=== PATIENT | female | born 1945 | race Hispanic/Latino ===

== ENCOUNTER → 2016-04-09 | Outpatient (CLI) | payer MEDICARE | LOC: GMAM 17:51 | PROVIDERS: ATTEND Family Medicine | DX: R31.29 Other microscopic hematuria (principal) ==

== ENCOUNTER → 2016-04-18 | Outpatient (CLI) | payer MEDICARE | END | disposition home or self-care (01) | LOC: GMAM 17:36 | PROVIDERS: ATTEND Family Medicine | DX: A59.9 Trichomoniasis, unspecified (principal); R31.29 Other microscopic hematuria ==

== ENCOUNTER → 2016-05-28 | Outpatient (CLI) | payer MEDICARE | END | disposition home or self-care (01) | LOC: GMAM 17:29 | PROVIDERS: ATTEND Family Medicine | DX: N39.41 Urge incontinence (principal) ==

== ENCOUNTER → 2016-05-31 | Outpatient (CLI) | payer MEDICARE ==
--- NOTE | 2016-05-31 10:21 | CT ---
EXAM DESCRIPTION: Abdomen/Pelvis w/wo Contrast CLINICAL HISTORY: URINARY INCONTINENCE N39.41 COMPARISON: July 04, 2010 TECHNIQUE: Pre and post contrast transaxial CT images of the abdomen and pelvis are obtained. CT scan done according to ALARA (As Low As Reasonably Achievable). FINDINGS: Visualized lung bases show no acute findings. Given the limitations of a noncontrast exam the liver, spleen, pancreas, adrenal glands, and gallbladder are unremarkable. Mild atherosclerotic disease is seen. Kidneys show no abnormal calcifications. No ureteral calcification or obstruction is seen. There is a less than 10 mm hypodense cortical lesion in the upper pole of the right kidney likely representing cyst. Subtle hypodensity in the posterior mid pole left kidney measuring 13 mm is not well characterized. Urinary bladder is contracted and unremarkable. Bladder fills with contrast on delayed images. The uterus is atrophic. The ovaries are unremarkable. The appendix is not identified. No small bowel obstruction is seen. Colon is unremarkable. Occasional mild diverticuli of the descending and sigmoid colon are seen without associated inflammatory changes or fluid collections. No pathologic lymphadenopathy. There is a borderline left common iliac chain lymph node measuring 10 mm that is stable compared to previous exam. Osseous structures show no aggressive bony lesions. Remote anterior wedge compression deformity of T8 10 again seen. IMPRESSION: No acute findings on pre and postcontrast CT of the abdomen and pelvis. Probable subcentimeter cortical cyst of the upper pole right kidney. Ill-defined hypodensity in the posterior mid to lower pole left kidney. This could represent mild left of the kidney. Further evaluation with ultrasound imaging may be useful. This appears to be present on the previous noncontrast study. Urinary bladder is contracted and not well evaluated. Electronically signed by: Roderick Monahan MD 05/31/2016 10:20 AM CDT
== END | disposition home or self-care (01) ==
LOC: CT 07:34
PROVIDERS: ATTEND Family Medicine
DX: N39.41 Urge incontinence (principal)

== ENCOUNTER → 2016-06-18 | Outpatient (CLI) | payer MEDICARE | END | disposition home or self-care (01) | LOC: GMAM 16:50 | PROVIDERS: ATTEND Family Medicine | DX: N30.00 Acute cystitis without hematuria (principal) ==

== ENCOUNTER → 2016-06-21 | Outpatient (CLI) | payer MEDICARE ==
--- NOTE | 2016-06-24 05:38 | US ---
Procedure: US RETROPERITONEUM Exam Date: 06/21/2016 12:00 AM CDT Ordering Provider: CARMELO SPRINGER Clinical Indication: HEMATURIA Comparison: None Technique: Real-time ultrasonography was obtained over the kidneys and urinary bladder and national account representative images were recorded. Findings: The right kidney is normal in size and contour. Normal renal cortical thickness and echogenicity. 4 x 5 mm calculus within the superior pole of the right kidney. There are no masses or hydronephrosis. The left kidney is normal in size and contour. Normal renal cortical thickness and echogenicity. There are no masses, calculi, or hydronephrosis. Bladder is not well seen. Impression: 1. Nonobstructing right upper pole calculus. Otherwise, unremarkable renal ultrasound. Electronically signed by: Darrell Martinez MD 06/24/2016 5:38 AM CDT
== END | disposition home or self-care (01) ==
LOC: US 14:41
PROVIDERS: ATTEND Family Medicine
DX: R31.29 Other microscopic hematuria (principal)

== ENCOUNTER → 2016-12-30 | Outpatient (CLI) | payer MEDICARE | END | disposition home or self-care (01) | LOC: GMAM 17:47 | PROVIDERS: ATTEND Family Medicine | DX: E55.9 Vitamin D deficiency, unspecified (principal); R53.83 Other fatigue; M85.89 Other specified disorders of bone density and structure, multiple sites; R31.29 Other microscopic hematuria ==

== ENCOUNTER 2017-01-23 15:04 | Emergency (ER) | payer MEDICARE ==
[2017-01-23 15:25] VITALS: TEMP 96.9
--- NOTE | 2017-01-23 15:36 | ED.PDOC ---
History of Present Illness - General Chief Complaint: Eye Problems Stated Complaint: eye twitching Time Seen by Provider: 01/23/17 15:13 Source: patient Exam Limitations: no limitations - History of Present Illness Initial Comments: Rashida Mattson 71 y/o female stated that her eyes had been shutting on and off since yesterday.Denies blurry vision ,recent eye trauma,or head injury.No weakness,no slurred speech. Timing/Duration: yesterday EENT Location: eye (L) Prearrival Treatment: other - otc-eye drops Improving Factors: nothing Worsening Factors: nothing Associated Symptoms: denies symptoms Allergies/Adverse Reactions: Allergies Iodine Allergy (Verified 09/23/13 00:48) Levocetirizine [From Xyzal] Allergy (Verified 01/23/17 15:25) Naproxen [From Aleve] Adverse Reaction (Verified 06/16/15 08:49) red pills Allergy (Uncoded 07/19/12 12:29) Home Medications: Ambulatory Orders Dnheuhg-Chvmsnolvjsca-Uuvgluza [Excedrin Extra Strength] 1 tab PO PRN 06/16/15 Atorvastatin Calcium [Lipitor] 10 mg PO BEDTIME 06/16/15 Lisinopril 10 mg PO BEDTIME 06/16/15 Metformin HCl 500 mg PO BEDTIME 06/16/15 Sertraline HCl [Zoloft] 100 mg PO BEDTIME 06/16/15 Review of Systems - Review of Systems Constitutional: States: no symptoms reported EENTM: States: see HPI Respiratory: States: no symptoms reported Cardiology: States: no symptoms reported Gastrointestinal/Abdominal: States: no symptoms reported Genitourinary: States: no symptoms reported Musculoskeletal: States: no symptoms reported Skin: States: no symptoms reported Neurological: States: no symptoms reported Past Medical History (General) - Patient Medical History Hx Congestive Heart Failure: No Hx Hypertension: Yes Hx Diabetes: Yes Hx Gastroesophageal Reflux: Yes Surgical History: appendectomy, other - both knees - Vaccination History Hx Tetanus, Diphtheria Vaccination: No Hx Influenza Vaccination: No Hx Pneumococcal Vaccination: No - Social History Hx Tobacco Use: Yes Hx Alcohol Use: No - Activities of Daily Living Grooming Ability: Independent Eating (Feeding) Ability: Independent Toileting Ability: Independent - Female History Patient : No Family Medical History - Family History Mother Family History: No Known Living Status: Hx Family Asthma: No Hx Family Diabetes: Yes - brother Hx Family;Other: LUPUS Physical Exam - Physical Exam General Appearance: Alert, Anxious, Comfortable, No apparent distress Eye Exam: bilateral normal Ear Exam: bilateral ear: auricle normal, canal normal, TM normal Nasal Exam: normal inspection Throat Exam: normal mouth inspection, pharynx normal Neck: non-tender, supple, normal inspection, trachea midline Cardiovascular/Respiratory: regular rate, rhythm, normal peripheral pulses, normal breath sounds Abdominal Exam: non-tender, no organomegaly Neurologic: no motor/sensory deficits, alert, oriented x 3 Skin Exam: normal color, warm/dry Progress - Progress Progress: 01/23/17 15:43 Last Vital Signs Temp 96.9 F L 01/23/17 15:21 Pulse 59 L 01/23/17 15:21 Resp 20 01/23/17 15:21 BP 143/68 01/23/17 15:21 Pulse Ox 98 01/23/17 15:21 - Results/Orders Results/Orders: Laboratory Tests 01/23/17 01/23/17 15:39 16:01 WBC 6.9 RBC 4.34 Hgb 12.6 Hct 37.8 MCV 87.1 MCH 29.0 MCHC 33.3 RDW 13.5 Plt Count 177 MPV 10.2 Absolute Neuts (auto) 4.23 Absolute Lymphs (auto) 2.19 Absolute Monos (auto) 0.41 Absolute Eos (auto) 0.05 Absolute Basos (auto) 0.02 Neutrophils % 61.4 Lymphocytes % 31.7 Monocytes % 5.9 Eosinophils % 0.7 L Basophils % 0.3 Sodium 139 Potassium 3.1 L Chloride 102 Carbon Dioxide 31 Anion Gap 9.1 L BUN 13 Creatinine 0.59 L BUN/Creatinine Ratio 22.0 H Random Glucose 116 H Serum Osmolality 278.6 Calcium 9.3 - EKG/XRAY/CT CT Ordered: Yes - head-no acute abnormalities Departure - Departure Clinical Impression: Blepharospasm, Hypokalemia Time of Disposition: 17:26 Disposition: Discharge to Home or Self Care Condition: Fair Departure Forms: ED Discharge - Pt. Copy, Patient Portal Self Enrollment Referrals: Davonte Angela MD [Primary Care Provider] - 1-2 Weeks Home Medications: Ambulatory Orders Fjmudac-Xmtmricuwarwj-Igczough [Excedrin Extra Strength] 1 tab PO PRN 06/16/15 Atorvastatin Calcium [Lipitor] 10 mg PO BEDTIME 06/16/15 Lisinopril 10 mg PO BEDTIME 06/16/15 Metformin HCl 500 mg PO BEDTIME 06/16/15 Sertraline HCl [Zoloft] 100 mg PO BEDTIME 06/16/15 Additional Instructions: May take over the counter Potassium tablet -one tablet daily for one week only; Follow up with primary md if symptoms of eye twitching persist after one week for referral to student records specialist
--- NOTE | 2017-01-23 16:38 | CT ---
EXAM DESCRIPTION: Head CLINICAL HISTORY: apraxia of left eyelid COMPARISON: CT scan of the head 01/23/2017. TECHNIQUE: Non-helical axial scans through the skull and brain, at 2.5 mm intervals, non-contrast. Coronal and sagittal 2.0 mm reconstructions. Total Exam DLP: 677.23 mGy-cm. This exam was performed according to our departmental dose-optimization program which includes automated exposure control, adjustment of the mA and/or kV according to patient size and/or use of iterative reconstruction technique; to reduce radiation dose to as low as reasonably achievable (ALARA). FINDINGS: No hemorrhage, no mass-effect, and no midline shift. Bilateral scattered regions of low-density in the subcortical white matter and hightower-white matter junctions. No abnormal radiodense material in the brain parenchyma. Vascular calcifications not present; physiologic calcifications in the pineal gland and choroid plexus. No effacement or displacement of the ventricles, CSF spaces, or subdural spaces. Bilateral cortical sulci mildly prominent. No extra axial fluid collection or hemorrhage. No gross abnormalities of the bony calvarium. Paranasal sinuses show mucoperiosteal thickening. IMPRESSION: 1. No hemorrhage, no mass effect, no midline shift. Bilateral low-density in the white matter is symmetric and most likely related to cerebral microvascular disease. Has slightly progressed since March 2011 CT scan of the head. 2. CT scans are insensitive for detecting small CVAs in the first 24 hours after onset. Evaluation of the brain stem is also limited. If symptoms persist, consider MRI scan of the brain with diffusion imaging. 3. Chronic paranasal sinusitis. Electronically signed by: Hayden Krause MD 01/23/2017 4:37 PM [facility]
[2017-01-23 17:42] VITALS: BP 136/78; O2SAT 97
== END 2017-01-23 17:42 | disposition home or self-care (01) ==
LOC: ER 15:04
DX: G24.5 Blepharospasm (principal); E87.6 Hypokalemia; I10 Essential (primary) hypertension; E11.9 Type 2 diabetes mellitus without complications; K21.9 Gastro-esophageal reflux disease without esophagitis; Z87.891 Personal history of nicotine dependence; Z88.8 Allergy status to other drugs, medicaments and biological substances; Z79.82 Long term (current) use of aspirin

== ENCOUNTER → 2017-02-11 | Outpatient (CLI) | payer MEDICARE | END | disposition home or self-care (01) | LOC: GMAM 16:29 | PROVIDERS: ATTEND Family Medicine | DX: N39.41 Urge incontinence (principal) ==

== ENCOUNTER → 2017-04-28 | Outpatient (CLI) | payer MEDICARE ==
--- NOTE | 2017-04-29 08:31 | US ---
EXAM DESCRIPTION: Renal CLINICAL HISTORY: 71 years Female, RENAL CYST COMPARISON: Previous study June 21, 2016, CT abdomen and pelvis without and with contrast November 23 May 31, 2016 TECHNIQUE: Retroperitoneal sonogram was performed to evaluate the kidneys and bladder. FINDINGS: Right kidney Right renal length is 10.4 cm. Renal cortical thickness and echogenicity are normal. Small echogenic focus 7 mm in the upper pole cortex of the right kidney may be small angiomyolipoma. This appears benign. This was seen on the previous study in June 2016 and at that time measured 6 mm. Lucency in the upper pole the right kidney could be a small cyst 7 mm in size or sonolucent pyramid. Otherwise no right renal mass, cyst or shadowing stone. Left kidney Left renal length is 10.4 cm. Renal cortical thickness and echogenicity are normal. No left renal mass, cyst or shadowing stone. Urinary bladder is not visualized. Inferior vena cava and aorta are unremarkable for age. No aortic aneurysm. 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 This is considered an incidental finding. Otherwise normal sonographic examination of the kidneys. Electronically signed by: Dominik Stoddard MD 04/29/2017 8:30 AM [facility]
== END ==
LOC: US 14:28
PROVIDERS: ATTEND Urology
DX: N20.0 Calculus of kidney (principal); N28.1 Cyst of kidney, acquired

== ENCOUNTER → 2017-07-15 | Outpatient (CLI) | payer MEDICARE | LOC: GMAM 10:58 | PROVIDERS: ATTEND Family Medicine | DX: E55.9 Vitamin D deficiency, unspecified (principal) ==

== ENCOUNTER → 2018-01-09 | Outpatient (CLI) | payer MEDICARE | LOC: GMAM 13:01 | PROVIDERS: ATTEND Family Medicine | DX: E55.9 Vitamin D deficiency, unspecified (principal) ==

== ENCOUNTER → 2018-03-12 | Outpatient (CLI) | payer MEDICARE | LOC: GMAM 16:38 | PROVIDERS: ATTEND Family Medicine | DX: R10.13 Epigastric pain (principal) ==

== ENCOUNTER 2018-03-13 09:02 | Emergency (ER) | payer MEDICARE ==
[2018-03-13 09:21] VITALS: TEMP 97.7
[2018-03-13] MEDS ORDERED: SODIUM CHLORIDE 0.9% (FLUSH) 10 ML SYG IV PRN (09:43)
--- NOTE | 2018-03-13 10:02 | ED.PDOC ---
History of Present Illness - General Chief Complaint: GI Problem Stated Complaint: epigastric pain Time Seen by Provider: 03/13/18 09:29 Information Source: patient Exam Limitations: no limitations - History of Present Illness Initial Comments: PT PRESENTS WITH COMPLAINT OF EPIGASTRIC ABDOMINAL PAIN WITH RADIATION TO THE CHEST AND THROAT THAT AWOKE HER FROM SLEEP YESTERDAY MORNING. PT DESCRIBES THE PAIN A PULLING SENSATION IN THE EPIGASTRIC REGION AND STATES THAT SHE HAD A BURNING SENSATION IN HER THROAT. PT WAS SEEN BY HER PCP YESTERDAY HAD LAB WORK DONE. PCP CALLED HER THIS AM AND RECOMMENDED COMING TO THE ED IF SYMPTOMS REMAINED. PT REPORTS THAT PAIN HAS IMPROVED SINCE YESTERDAY AFTER BEING STARTED ON PPI AND MILK OF MAGNESIA BY PCP. ONLY RATING IT AT 3/10 CURRENTLY. PT REPORTS EATING CROWLEY PIE FOR BREAKFAST PRIOR TO ARRIVAL. DENIES, NAUSEA, VOMITING, FEVER, SOB, OR CHEST PAIN. Abdominal Pain Onset Location: epigastric Pain Radiation: chest Quality: moderate, aching, burning Improving Factors: medication Worsening Factors: nothing Associated Symptoms: heartburn Review of Systems - Review of Systems Constitutional: Denies: chills, fever EENTM: Denies: nose congestion, throat pain Respiratory: Denies: cough, short of breath Cardiology: Denies: chest pain Gastrointestinal/Abdominal: States: abdominal pain. Denies: nausea, vomiting Genitourinary: Denies: dysuria, hematuria Musculoskeletal: Denies: joint pain, joint swelling Skin: Denies: dryness, lesions Neurological: Denies: headache, numbness Past Medical History (General) - Patient Medical History Hx Congestive Heart Failure: No Hx Hypertension: Yes Hx Diabetes: Yes Hx Gastroesophageal Reflux: Yes - Vaccination History Hx Tetanus, Diphtheria Vaccination: No Hx Influenza Vaccination: No Hx Pneumococcal Vaccination: No - Social History Hx Tobacco Use: Yes Hx Alcohol Use: No - Female History Patient : No Family Medical History - Family History Mother Family History: No Known Living Status: Hx Family Asthma: No Hx Family Diabetes: Yes - brother Hx Family;Other: LUPUS Physical Exam - Physical Exam General Appearance: Alert, Comfortable, No apparent distress, Obese, Well Groomed Eyes, Ears, Nose, Throat Exam: normal ENT inspection Neck: non-tender, full range of motion Respiratory: lungs clear, normal breath sounds, no respiratory distress Cardiovascular/Chest: regular rate, rhythm, no murmur Gastrointestinal/Abdominal: non tender, soft Back Exam: normal inspection Extremity: non-tender, normal inspection Neurologic: alert, normal mood/affect, oriented x 3 Skin Exam: normal color, warm/dry Progress - Progress Progress: 03/13/18 11:33 Laboratory Tests 03/13/18 03/13/18 03/13/18 09:55 09:55 09:55 WBC 6.1 RBC 4.41 Hgb 12.8 Hct 38.6 MCV 87.7 MCH 29.0 MCHC 33.1 RDW 13.9 Plt Count 177 MPV 9.1 Absolute Neuts (auto) 4.00 Absolute Lymphs (auto) 1.60 Absolute Monos (auto) 0.40 Absolute Eos (auto) 0.00 Absolute Basos (auto) 0.00 Neutrophils % 66.5 Lymphocytes % 25.7 Monocytes % 7.2 Eosinophils % 0.1 L Basophils % 0.5 Sodium 140 Potassium 3.6 Chloride 103 Carbon Dioxide 30 Anion Gap 10.6 L BUN 16 Creatinine 0.63 BUN/Creatinine Ratio 25.4 H Random Glucose 127 H Serum Osmolality 282.2 Calcium 9.1 Total Bilirubin 0.5 Direct Bilirubin < 0.1 Indirect Bilirubin 0.4 AST 22 ALT 19 Alkaline Phosphatase 66 Troponin I < 0.02 Serum Total Protein 7.4 Albumin 4.3 Lipase 22 Urine Color Urine Appearance Urine pH Ur Specific Dexter Urine Protein Urine Glucose (UA) Urine Ketones Urine Blood Urine Nitrite Urine Bilirubin Urine Urobilinogen Ur Leukocyte Esterase Urine RBC Urine WBC Ur Epithelial Cells Urine Bacteria 03/13/18 10:25 WBC RBC Hgb Hct MCV MCH MCHC RDW Plt Count MPV Absolute Neuts (auto) Absolute Lymphs (auto) Absolute Monos (auto) Absolute Eos (auto) Absolute Basos (auto) Neutrophils % Lymphocytes % Monocytes % Eosinophils % Basophils % Sodium Potassium Chloride Carbon Dioxide Anion Gap BUN Creatinine BUN/Creatinine Ratio Random Glucose Serum Osmolality Calcium Total Bilirubin Direct Bilirubin Indirect Bilirubin AST ALT Alkaline Phosphatase Troponin I Serum Total Protein Albumin Lipase Urine Color Yellow Urine Appearance Clear Urine pH 7.5 Ur Specific Dexter 1.020 Urine Protein Trace Urine Glucose (UA) Negative Urine Ketones Trace Urine Blood Negative Urine Nitrite Negative Urine Bilirubin Negative Urine Urobilinogen 0.2 Ur Leukocyte Esterase Negative Urine RBC 1-3 Urine WBC 3-5 H Ur Epithelial Cells 5-10 Urine Bacteria Rare PT REPORTS IMPROVED SYMPTOMS AFTER GI SLIDER AND IV FLUIDS. LABS AND DIAGNOSTICS DISCUSSED. RECOMMEND OUTPATIENT U/S IF SYMPTOMS PERSIST AND FOLLOW UP WITH PCP. 03/13/18 11:35 - EKG/XRAY/CT EKG: Sinus - @77BPM, NL INTERVALS, NL AXIS, no ST T wave changes, Unchanged from - 07/19/12 XRAY: chest - NO ACTIVE DISEASE AD PER RAD Departure - Departure Clinical Impression: Epigastric abdominal pain, UTI (urinary tract infection), Dehydration Time of Disposition: 11:39 Disposition: Discharge to Home or Self Care Condition: Good Departure Forms: ED Discharge - Pt. Copy, Patient Portal Self Enrollment Instructions: DI for Gastroesophageal Reflux Disease (GERD), DI for Abdominal Pain-Adult, Urinary Tract Infection, Adult (DC) Diet: bland diet Referrals: Davonte Angela MD [Primary Care Provider] - 1-5 Days Prescriptions: Cefuroxime Axetil [Ceftin] 500 mg PO Q12H #6 tablet Home Medications: Ambulatory Orders Omgmkmc-Iztcuoafmdexj-Xatueslc [Excedrin Extra Strength] 1 tab PO PRN 06/16/15 Atorvastatin Calcium [Lipitor] 10 mg PO BEDTIME 06/16/15 Metformin HCl 500 mg PO BEDTIME 06/16/15 Sertraline HCl [Zoloft] 100 mg PO BEDTIME 06/16/15 Cefuroxime Axetil [Ceftin] 500 mg PO Q12H #6 tablet 03/13/18 Pantoprazole Sodium 40 mg PO DAILY 03/13/18 amLODIPine BESYLATE [Norvasc] 5 mg PO DAILY 03/13/18
--- NOTE | 2018-03-13 10:04 | RAD ---
EXAM DESCRIPTION: Chest,1 View CLINICAL HISTORY: 72 years Female, CHEST PAIN COMPARISON: Previous study July 19, 2012 TECHNIQUE: AP portable chest. FINDINGS: Heart size is prominent with normal pulmonary vascularity. The heart appeared larger on the previous exam. No consolidating infiltrate. No pulmonary mass or worrisome nodule. No pneumothorax or pleural effusion. Bones are unremarkable. IMPRESSION: No acute process is identified in the chest. Electronically signed by: Dominik Stoddard MD 03/13/2018 10:[address] [facility]
[2018-03-13] MEDS ORDERED: SODIUM CHLORIDE 0.9% 1000ML 1,000 ML IVS ONE (10:41)
[2018-03-13] MEDS ORDERED: ALUM & MAG HYDROX-SIMETHICONE 30 ML, LIDOCAINE VISCOUS 2% 15 ML PO ONE ×2 (10:41)
[2018-03-13] MEDS ORDERED: ALUM & MAG HYDROX-SIMETHICONE 30 ML UD ONE (11:38)
[2018-03-13] MEDS ORDERED: LIDOCAINE HCL 2% (MOUTH-THROAT) 15 ML UD ONE (11:38)
[2018-03-13 12:52] VITALS: BP 169/67; O2SAT 98
== END 2018-03-13 12:50 | disposition home or self-care (01) ==
LOC: ER 09:02
DX: N39.0 Urinary tract infection, site not specified (principal); E86.0 Dehydration; R10.13 Epigastric pain; I10 Essential (primary) hypertension; E11.9 Type 2 diabetes mellitus without complications; K21.9 Gastro-esophageal reflux disease without esophagitis; Z87.891 Personal history of nicotine dependence
CPT/HCPCS: 36415; 71045; 80048; 80076; 81001; 83690; 84484; 85025; 93005; J7030

== ENCOUNTER → 2019-10-01 | Outpatient (CLI) | payer MEDICARE ==
--- NOTE | 2019-10-04 09:29 | US ---
EXAM DESCRIPTION: Abdomen,Limited: ULTRASOUND. CLINICAL HISTORY: GEN ABD PN COMPARISON: None. TECHNIQUE: Transabdominal scanning: hightower-scale mode. Doppler mode. FINDINGS: Gallbladder: Moderate size and heterogeneous internal echoes with 2.6 cm echogenic stone with acoustic shadowing. Mobile with patient change in position. No fluid around the gallbladder. No wall thickening. 2.6 mm. Non-tender with transducer pressure. Common bile duct: caliber 4.3 mm within normal limits. Liver: Increased heterogeneous echogenicity; fatty sparing. Contour liver capsule smooth where seen. No fluid around the liver. Intrahepatic biliary ducts normal caliber. Doppler hepatopedal flow and normal caliber portal vein.. 9 mm at the ivy hepatis. Long axis right lobe 17.2 cm. Pancreas: normal size and echogenicity. Duct not seen. Proximal abdominal aorta: 1.8 cm normal.. IVC: visualized and normal caliber. Right kidney: long axis measures 10.1 cm., 105.9 mL volume. Normal cortical Echogenicity. Normal cortical thickness. No echogenic stones; no hydronephrosis. IMPRESSION: 1. Cholelithiasis of the gallbladder with debris but no wall thickening or abnormal fluid. Nontender with transducer pressure. Normal common bile duct caliber. 2. Fatty liver with mild enlargement. No ascites. Pancreas is negative. 3. Right kidney is unremarkable. Normal caliber of the proximal abdominal aorta and IVC. Electronically signed by: Hayden Krause MD 10/04/2019 9:27 AM CDT
== END ==
LOC: US 08:52
PROVIDERS: ATTEND Family Medicine
DX: K80.20 Calculus of gallbladder without cholecystitis without obstruction (principal); K76.0 Fatty (change of) liver, not elsewhere classified

== ENCOUNTER → 2019-10-05 | Outpatient (CLI) | payer MEDICARE | LOC: GMAM 11:54 | PROVIDERS: ATTEND Family Medicine | DX: R07.89 Other chest pain (principal); R73.9 Hyperglycemia, unspecified; R10.84 Generalized abdominal pain; I10 Essential (primary) hypertension ==

== ENCOUNTER 2019-10-15 05:36 | Day surgery (SDC) | payer MEDICARE ==
[2019-10-15] MEDS ORDERED: DEXAMETHASONE INJ 10 MG/ML VIAL IV ONE (05:37)
[2019-10-15] MEDS ORDERED: MAGNESIUM SULFATE INJ 1 GM/2 ML VIAL IVPB ONE (05:37)
[2019-10-15] MEDS ORDERED: PROPOFOL 200 MG/20 ML VIAL IV ONE (05:37)
[2019-10-15] MEDS ORDERED: LIDOCAINE 1% 10 ML VIAL INJ ONE (05:37)
[2019-10-15] MEDS ORDERED: ceFAZolin SODIUM 1 GM VIAL ONE (06:28)
[2019-10-15] MEDS ORDERED: SODIUM CHL 0.9% 100ML MINI-BAG 100 ML IVPB ONE (06:28)
[2019-10-15] MEDS ORDERED: LACTATED RINGERS 1,000 ML ONE (06:28)
[2019-10-15] MEDS ORDERED: BUPIVACAINE 0.5% W/EPI 30 ML VIAL INJ ONE (07:13)
[2019-10-15] MEDS ORDERED: MIDAZOLAM INJ 2 MG/2 ML VIAL ONE (08:26)
[2019-10-15] MEDS ORDERED: fentaNYL CITRATE INJ 50 MCG/ML AMP ONE (08:26)
[2019-10-15] MEDS ORDERED: KETAMINE HCL 100 MG/ML VIAL ONE (08:27)
[2019-10-15] MEDS ORDERED: ROCURONIUM BROMIDE 10 MG/ML VIAL ONE (08:34)
[2019-10-15] MEDS ORDERED: FAMOTIDINE 10 MG/ML ML IV ONE (08:34)
[2019-10-15] MEDS ORDERED: BUPIVACAINE 0.5% 30 ML VIAL INJ ONE ×2 (08:52)
[2019-10-15] MEDS ORDERED: SUGAMMADEX SODIUM 200 MG/2 ML VIAL IV ONE (09:40)
[2019-10-15] MEDS ORDERED: LACTATED RINGERS 1,000 ML IVS ONE (10:02)
[2019-10-15] MEDS: HYDROmorphone HCL INJ 2 MG/ML VIAL ONE ×3 (10:06→10:26)
--- NOTE | 2019-10-15 10:13 | OP ---
DATE OF PROCEDURE: 10/15/19 PREOPERATIVE DIAGNOSIS: 1. Cholelithiasis. POSTOPERATIVE DIAGNOSIS: 1. Cholelithiasis. PROCEDURE: 1. Laparoscopic cholecystectomy. SURGEON: Felipe Cao MD. ANESTHESIA: Allen Lazaro CRNA. FINDINGS: Adhesions to the anterior abdominal wall, uncertain etiology. Also to the top of the liver and not associated with the gallbladder. Anatomy was clearly visualized through the triangle of Calot. COMPLICATIONS: None. ESTIMATED BLOOD LOSS: Minimal. SPECIMEN: Gallbladder. PLAN: Discharge. INDICATION: As stated. PROCEDURE: General anesthesia was induced. The patient was prepped and draped in sterile fashion. Marcaine 0.5% with epinephrine was used at all incision sites. While maintaining upward traction, a murali was made near the base of the umbilicus. Veress needle was introduced. There was free flow of fluid into the peritoneal cavity which was insufflated to an appropriate level with CO2 gas. The 5 mm trocar was placed followed by the camera. There was no evidence of bleeding or bowel injury. The patient was positioned and subxiphoid and lateral ports were placed under direct visualization. There were adhesions to the anterior abdominal wall. The colon was visualized and it was not involved. These were taken down sharply as well as some on the anterior surface of the liver. These were taken down. Uncertain of its etiology. It could be congenital or maybe she had a liver trauma in the past, but they were not associated with the gallbladder itself. The gallbladder fundus was grasped and retracted superiorly and laterally. The infundibulum was grasped. The infundibular structures were dissected free until the duct and artery were clearly visualized through the triangle of Calot. Three clips were placed on the duct and the artery. They were ligated. The gallbladder was then dissected off the fossa in toto and removed in the EndoCatch bag. The fossa was examined. It remained hemostatic. The clips were intact. There was no bleeding or bile leakage. The area was irrigated until all aspirate was clear. The subxiphoid fascia was then closed with 0 Vicryl using the suture passer. It was airtight and non-bleeding. The remaining trocars were removed. There was no bleeding from the trocar sites. The wounds were irrigated and closed with Monocryl. Dressings were applied. The patient was awakened and taken to Recovery in stable condition to be discharged. #[id number] [facility]
[2019-10-15] MEDS ORDERED: HYDROcodone 5MG/APAP 325MG 1 EA TAB ONE (11:05)
[2019-10-15 12:32] VITALS: BP 146/87; TEMP 97.6; O2SAT 91
== END 2019-10-15 12:30 | disposition home or self-care (01) ==
LOC: AMB 05:36
PROVIDERS: ATTEND Surgery
DX: K80.10 Calculus of gallbladder with chronic cholecystitis without obstruction (principal); E11.9 Type 2 diabetes mellitus without complications; I10 Essential (primary) hypertension; F41.9 Anxiety disorder, unspecified; F32.9 Major depressive disorder, single episode, unspecified; E78.00 Pure hypercholesterolemia, unspecified; J45.909 Unspecified asthma, uncomplicated; E66.9 Obesity, unspecified; Z91.048 Other nonmedicinal substance allergy status; Z88.8 Allergy status to other drugs, medicaments and biological substances; Z79.82 Long term (current) use of aspirin; Z79.899 Other long term (current) drug therapy; Z79.84 Long term (current) use of oral hypoglycemic drugs
CPT/HCPCS: 00790; 36415; 36416; 47562; 80048; 82948; 85025; 88304; 93005; J0690; J1100; J1170; J2250; J3010; J3475; J3490; J7050; J7120

== ENCOUNTER 2019-10-30 14:07 | Observation (INO) | payer MEDICARE ==
[2019-10-30] MEDS ORDERED: MORPHINE SULFATE INJ 10 MG/ML VIAL IV ONE ×2 (14:22→15:30)
[2019-10-30] MEDS ORDERED: ONDANSETRON INJ 4 MG/2 ML VIAL IV ONE (14:22)
[2019-10-30] MEDS ORDERED: KETOROLAC TROMETHAMINE INJ 30 MG/ML VIAL IV ONE (14:22)
[2019-10-30] MEDS ORDERED: SODIUM CHLORIDE 0.9% 1000ML 1,000 ML IVS ONE (14:22)
--- NOTE | 2019-10-30 14:27 | ED.PDOC ---
History of Present Illness - General Time Seen by Provider: 10/30/19 14:22 Source: patient - History of Present Illness Initial Comments: 73-year-old female with past medical history of hypertension, diabetes, status post cholecystectomy 2 weeks ago who presents the ED with chief complaint of right-sided facial pain. Onset 2 weeks agoreports at that time she was seen and diagnosed with a tooth infection and prescribed antibiotics for 5 days. She states that she took the antibiotics and the pain seemed to improve however it is been worsening again over the past 1 week. She also reports worsening swelling of the right side of the face and right jaw. Pain is now reported as constant, 10/10 severity, dull aching in nature, begins in the right maxillary region and radiates to the right jaw and right side of the neck and right ear, worse with palpation. She has been taking Tylenol 3 intermittently at home with little relief. She also reports sore throat. Denies any fevers, chills, cough, chest pain, dyspnea, abdominal pain, nausea, vomiting. PCP is Dr. Angela. Allergies/Adverse Reactions: Allergies Iodine Allergy (Verified 10/30/19 14:28) Levocetirizine [From Xyzal] Allergy (Verified 10/30/19 14:28) Naproxen [From Aleve] Adverse Reaction (Verified 10/30/19 14:28) red pills Allergy (Uncoded 03/13/18 09:21) Home Medications: Ambulatory Orders Atorvastatin Calcium [Lipitor] 10 mg PO BEDTIME 06/16/15 Metformin HCl [Metformin Hydrochloride] 500 mg PO BIDFD 06/16/15 Sertraline HCl [Zoloft] 150 mg PO BEDTIME 06/16/15 amLODIPine BESYLATE [Norvasc] 5 mg PO DAILY 03/13/18 Aspirin [Aspirin Adult Low Dose] 81 mg PO DAILY 10/11/19 Cholecalciferol [Vitamin D-3] 2,000 unit PO DAILY 10/11/19 Review of Systems - Review of Systems Review of Systems: 10/30/19 23:01 as per HPI All other Systems: Reviewed and Negative Past Medical History (General) - Patient Medical History Hx Congestive Heart Failure: No Hx Hypertension: Yes Hx Diabetes: Yes - FSBS 129 Hx Gastroesophageal Reflux: Yes Hx MRSA: No - Vaccination History Hx Tetanus, Diphtheria Vaccination: No Hx Influenza Vaccination: No Hx Pneumococcal Vaccination: No - Social History Hx Tobacco Use: Yes Hx Alcohol Use: No - Female History Patient : No Family Medical History - Family History Mother Family History: No Known Living Status: Hx Family Asthma: No Hx Family Diabetes: Yes - brother Hx Family;Other: LUPUS Physical Exam - Physical Exam General Appearance: Alert, No apparent distress, Obese Eye Exam: bilateral normal Ears, Nose, Throat: hearing grossly normal, other - poor dentition without noted gumline swelling/warmth/redness or focal ttp. BL TMs normal on inspection, no noted facial swelling/warmth/redness/asymmetry, marked R-sided facial ttp Neck: full range of motion, supple, lymphadenopathy (R), other - marked R-sided anterior neck ttp with moderate soft tissue swelling w/o warmth/redness/masses/crepitus Respiratory: chest non-tender, lungs clear, normal breath sounds, no respiratory distress, no accessory muscle use Cardiovascular/Chest: normal peripheral pulses, regular rate, rhythm, no edema, no gallop, no JVD, no murmur Peripheral Pulses: radial,right: 2+, radial,left: 2+ Gastrointestinal/Abdominal: non tender, soft Back Exam: normal inspection Extremity: normal range of motion, non-tender, normal inspection, no pedal edema, no calf tenderness, normal capillary refill 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 Her blood pressure is improved but still elevated to 180s/80s, remainder vitals stable. Her initial lab work is largely unremarkable. Serum WBC is within normal limits although there is some slight left shift, lactic acid is 1.0. Will obtain CT imaging of the soft tissue of the neck. Also obtain cardiac work-up. IV aspirin 324 mg p.o., sublingual nitroglycerin as needed. Fentanyl 50 mcg IV. 10/30/19 18:49 -Patient's cardiac work-up is unremarkable in the ED. Strep test is positive. Remainder of lab work including WBC count and lactate is unremarkable. CT imaging of the soft tissue of the neck reveals only some reactive lymphadenopathy but no focal abscesses or evidence of cellulitis. -Patient remained stable but still reports severe pain in her face and right side of the neck. We will give Dilaudid 1 mg IV given her uncontrolled pain. Also give labetalol 10 mg IV for persistently elevated blood pressure. Her chest pain has been resolved. -I discussed the patient with Katelyn Rice, hospitalist, who accepts the patient for admission for chest pain observation and strep pharyngitis. With her unc ontrolled pain, I am concerned she may be developing an early facial cellulitis and is high risk given her history of diabetes. It is reassuring however, that her WBC count and lactate levels are normal and she is without fever. We will begin treatment with IV antibioticsRocephin 1 g IV. Mahad Mckeon MD Billing #[id number] 10/30/19 14:22 Telemetry .ONCE Sodium Chloride 0.9% (Flush) [Saline Flush Syringe] 10 ml IV PRN PRN 10/30/19 14:23 UA [URINALYSIS] Stat 10/30/19 17:15 EKG STAT 10/30/19 18:48 cefTRIAXone SODIUM [Rocephin] 1 gm Sodium Chl 0.9% 50Ml Min-Bag+ [NS 50ml MINI-BAG+] 50 ml IVPB ONCE 10/31/19 09:00 Pulse Ox Daily 10/31/19 15:30 EKG STAT Laboratory Results - last 24 hr 10/30/19 10/30/19 10/30/19 14:35 14:35 14:35 WBC 7.4 RBC 4.61 Hgb 13.4 Hct 39.5 MCV 85.7 MCH 29.1 MCHC 34.0 RDW 13.8 Plt Count 216 MPV 8.5 Absolute Neuts (auto) 5.70 Absolute Lymphs (auto) 1.20 Absolute Monos (auto) 0.50 Absolute Eos (auto) 0.00 Absolute Basos (auto) 0.00 Neutrophils % 77.4 Lymphocytes % 15.7 L Monocytes % 6.4 Eosinophils % 0.1 L Basophils % 0.4 Sodium 140 Potassium 3.2 L Chloride 102 Carbon Dioxide 28 Anion Gap 13.2 BUN 14 Creatinine 0.58 L BUN/Creatinine Ratio 24.1 H Random Glucose 132 H Serum Osmolality 281.7 Lactic Acid 1.0 Calcium 9.2 Troponin I B-Natriuretic Peptide Group A Strep Rapid 10/30/19 10/30/19 10/30/19 14:35 14:35 15:25 WBC RBC Hgb Hct MCV MCH MCHC RDW Plt Count MPV Absolute Neuts (auto) Absolute Lymphs (auto) Absolute Monos (auto) Absolute Eos (auto) Absolute Basos (auto) Neutrophils % Lymphocytes % Monocytes % Eosinophils % Basophils % Sodium Potassium Chloride Carbon Dioxide Anion Gap BUN Creatinine BUN/Creatinine Ratio Random Glucose Serum Osmolality Lactic Acid Calcium Troponin I < 0.02 B-Natriuretic Peptide 134.0 H Group A Strep Rapid Positive H 10/30/19 17:17 WBC RBC Hgb Hct MCV MCH MCHC RDW Plt Count MPV Absolute Neuts (auto) Absolute Lymphs (auto) Absolute Monos (auto) Absolute Eos (auto) Absolute Basos (auto) Neutrophils % Lymphocytes % Monocytes % Eosinophils % Basophils % Sodium Potassium Chloride Carbon Dioxide Anion Gap BUN Creatinine BUN/Creatinine Ratio Random Glucose Serum Osmolality Lactic Acid Calcium Troponin I < 0.02 B-Natriuretic Peptide Group A Strep Rapid - EKG/XRAY/CT EKG: Sinus - Normal sinus rhythm, heart rate 70, no ST elevations or Q waves, axis normal, intervals normal, compared to 10/15/2019 EKG appears unchanged. XRAY: chest - No acute processes per my read - Additional EKG/XRAY/Consults EKG #2: Unchanged from - Initial Departure - Departure Clinical Impression: Dental abscess, Strep pharyngitis, Hypertensive urgency Chest pain Qualifiers: Chest pain type: unspecified Qualified Code(s): R07.9 - Chest pain, unspecified Time of Disposition: 18:49 Disposition: Admit Patient Condition: Fair Diet: diabetic diet Home Medications: Ambulatory Orders Atorvastatin Calcium [Lipitor] 10 mg PO BEDTIME 06/16/15 Metformin HCl [Metformin Hydrochloride] 500 mg PO BIDFD 06/16/15 Sertraline HCl [Zoloft] 150 mg PO BEDTIME 06/16/15 amLODIPine BESYLATE [Norvasc] 5 mg PO DAILY 03/13/18 Aspirin [Aspirin Adult Low Dose] 81 mg PO DAILY 10/11/19 Cholecalciferol [Vitamin D-3] 2,000 unit PO DAILY 10/11/19 Decision To Admit - Decistion To Admit Decision to Admit Reason: Admit from ER Decision to Admit Date: 10/30/19 Decision to Admit Time: 18:49
[2019-10-30] MEDS: SODIUM CHLORIDE 0.9% (FLUSH) 10 ML SYG IV PRN ×2 (15:04→18:54)
[2019-10-30] MEDS ORDERED: ASPIRIN (CHEWABLE) 81 MG TAB PO ONE (15:30)
[2019-10-30] MEDS ORDERED: fentaNYL CITRATE INJ 50 MCG/ML AMP IV ONE ×2 (15:44→17:06)
--- NOTE | 2019-10-30 16:12 | CT ---
EXAM DESCRIPTION: Soft Tissue Neck CLINICAL HISTORY: 73 years Female R facial and neck pain (allergic to iodine) COMPARISON: None. TECHNIQUE: Contiguous axial images obtained through the neck without IV contrast. Reformatted images obtained. This exam was performed according to our department optimization program which includes automated exposure control, adjustment of the mA and/or kv according to patient size and/or use of iterative reconstruction technique. FINDINGS: The parotid glands, submandibular glands and thyroid gland appear unremarkable. Nasopharynx appears unremarkable. The visualized segments of the paranasal sinuses, middle ears and mastoid air cells are free from fluid. Dental disease. Scattered lymph nodes in the neck likely reactive. No enlarged nodes or mass lesions are identified. Epiglottis is unremarkable. No evidence of retropharyngeal or parapharyngeal fluid or fluid collection. No significant subcutaneous inflammatory changes are noted. IMPRESSION: No acute process noted Electronically signed by: Aleksandra Steele MD 10/30/2019 4:10 PM CDT
[2019-10-30] MEDS ORDERED: HYDROmorphone HCL INJ 2 MG/ML VIAL IV ONE (18:01)
[2019-10-30] MEDS ORDERED: LABETALOL INJ 5 MG/ML VIAL IV ONE (18:02)
[2019-10-30] MEDS ORDERED: POTASSIUM CHLORIDE 20 MEQ TAB PO ONE (18:24)
[2019-10-30] MEDS ORDERED: cefTRIAXone SODIUM 1 GM in SODIUM CHL 0.9% 50ML MIN-BAG+ 50 ML IVPB ONE (18:48)
--- NOTE | 2019-10-30 19:47 | HP ---
SUPERVISING PHYSICIAN: Davonte Angela M.D. DISCHARGE DIAGNOSIS: 1. Cellulitis of the right jaw most likely due to a buccal abscess. 2. Strep throat. 3. Diabetes mellitus type 2. 4. Hypertension. 5. Hyperlipidemia. HISTORY OF PRESENT ILLNESS: This is a 73 year-old female who has a past history of hypertension and diabetes. She came to the Emergency Room due to right sided facial pain. She said that it happened about 2 weeks ago. She did try to get in to her dentist at that time but she had a scheduled cholecystectomy done here at [facility]. She was unable to get into her local dentist at that time. She had a cholecystectomy about 2 weeks ago and her pain had improved, but over the last 3 or 4 days the pain had increasingly worsened. She has had some swelling to that right jaw. Her daughter wanted to bring her to the Emergency Room several days ago but she refused. Finally on Friday the pain was unbearable and she had to come to the hospital. In the Emergency Room, her initial vital signs were temperature of 97.6, heart rate 82, blood pressure 211/86, respiratory rate 20, O2 saturation 94% on room air. Lab studies showed a CBC that was unremarkable with an ESR of 29. Electrolytes were within normal limits. There was also a question of some substernal chest pain and her initial troponin was negative. BNP was slightly elevated at 134. CT of the soft tissues of the neck showed no acute process noted. Her Strep swab was also positive. She was placed in observation in the hospital in stable condition. PAST MEDICAL HISTORY: 1. Hypertension. 2. Hyperlipidemia. 3. Diabetes mellitus type 2. PAST SURGICAL HISTORY: 1. Cholecystectomy 2 weeks ago. 2. Appendectomy. 3. Unknown abdominal surgery. OUTPATIENT MEDICATIONS: 1. Metformin. 2. Sertraline. 3. Amlodipine. 4. Vitamin D3. 5. Aspirin. 6. Atorvastatin. ALLERGIES: IODINE, LEVOCETIRIZINE AND NAPROSYN. SOCIAL HISTORY: She lives in [place]. She denies any tobacco, ETOH or illicit drug use. REVIEW OF SYSTEMS: GENERAL: Negative for fever, fatigue or weight changes. HEENT: As per History of Present Illness. RESPIRATORY: Denies wheezing, coughing or shortness of breath. CARDIAC: Positive for mild substernal chest pain that had resolved prior to admission to the Emergency Room. Denies tachycardia or palpitations. GASTROINTESTINAL: Positive for nausea prior to arrival at the Emergency Room. Negative for vomiting, diarrhea or constipation. GENITOURINARY: Negative for hematuria, dysuria or polyuria. SKIN: Negative for lesions or rashes. NEUROLOGIC: Negative for seizures, headaches or dizziness. PHYSICAL EXAMINATION: VITAL SIGNS: Temperature 98.2, heart rate 72, blood pressure 148/77, respiratory rate 16, O2 saturation 97% on 1 liter nasal cannula. GENERAL: This is a 73 year-old female patient lying in her hospital bed. She is in no acute distress. HEENT: Normocephalic, atraumatic. She does have some mild swelling to her right jaw. It is tender to palpation. There is no warmth or erythema noted. NECK: Supple without mass. RESPIRATORY: Essentially clear to auscultation bilaterally. CARDIOVASCULAR: Regular rate and rhythm. GASTROINTESTINAL: Abdomen is soft, nondistended, nontender. Bowel sounds are positive. BACK: Exam is deferred. EXTREMITIES: No cyanosis, clubbing or edema. NEUROLOGIC: Awake, alert and oriented times three. Cranial nerves II-XII are grossly intact as tested. SKIN: Warm and dry. FOLLOWUP LABORATORY: CBC is unremarkable. Electrolytes are within normal limits. Followup serial troponins were negative. Triglycerides are 116, LDL is 127.7, HDL is 48. CRP is 0.7. Urinalysis is unremarkable. All other labs and films have been reviewed via the EMR. HOSPITAL COURSE: The patient has improved slightly overnight. She continues to have pain, but she is on Tylenol #4 at this point. Her followup labs have been unremarkable. She will be discharged home in stable condition. DISCHARGE PLAN: The patient will be discharged home in stable condition. She is to resume her previous diet and activity. She has an appointment with her dentist tomorrow and she is to make sure she keeps that appointment. After she sees her dentist she can followup with Dr. Angela within the next 1 to 2 weeks. In addition to her routine medications she will be sent home on Align as well as 7 additional days of Augmentin. I have also sent her home on some Acetaminophen with Codeine 30 tabs. [facility] and there are no issues found. She is to return to the hospital or followup with her dentist or Dr. Angela for any problems or complications. DISCHARGE MEDICATIONS: 1. Sertraline. 2. Metformin. 3. Atorvastatin. 4. Amlodipine. 5. Aspirin. 6. Vitamin D3. 7. Align. 8. Augmentin. 9. Acetaminophen with Codeine. #[id number] [facility]
[2019-10-30] MEDS ORDERED: ONDANSETRON INJ 4 MG/2 ML VIAL IV PRN (20:21)
[2019-10-30] MEDS ORDERED: ACETAMINOPHEN 325 MG TAB PO PRN (20:21)
[2019-10-30] MEDS ORDERED: SODIUM CHLORIDE 0.9% (FLUSH) 10 ML SYG IV PRN (20:21)
[2019-10-30] MEDS ORDERED: DEXTROSE 50% 25 GM/50 ML SYG IV PRN (20:24)
[2019-10-30] MEDS ORDERED: GLUCAGON INJ 1 MG VIAL SUBCU PRN (20:24)
[2019-10-30] MEDS ORDERED: NITROGLYCERIN 0.4 MG 25 EA TAB SL PRN (20:24)
[2019-10-30] MEDS ORDERED: HYDROmorphone HCL INJ 2 MG/ML VIAL IV PRN (20:28)
[2019-10-30] MEDS ORDERED: ENOXAPARIN SODIUM 40 MG/0.4 ML SYG SUBCU SCH (20:30)
[2019-10-30] MEDS ORDERED: IV SET AND CAP CHANGE INJ INJ SCH ×2 (20:30)
[2019-10-30] MEDS: SODIUM CHLORIDE 0.9% (FLUSH) 10 ML SYG IV SCH (20:33)
[2019-10-30] MEDS ORDERED: ATORVASTATIN 10 MG TAB PO SCH (21:00)
[2019-10-30] MEDS ORDERED: SERTRALINE HCL 50 MG TAB PO SCH (21:00)
[2019-10-30] MEDS: BENZOCAINE-MENTH LOZ (CEPACOL) 1 EA LOZ MT PRN (21:14)
[2019-10-30] MEDS: INSULIN LISPRO 100 UNITS/ML PEN SUBCU SCH (21:22)
[2019-10-31] MEDS: SODIUM CHLORIDE 0.9% (FLUSH) 10 ML SYG IV SCH ×2 (02:19→10:13)
[2019-10-31] MEDS: BENZOCAINE-MENTH LOZ (CEPACOL) 1 EA LOZ MT PRN (05:30)
[2019-10-31] MEDS ORDERED: PANTOPRAZOLE SODIUM IV 40 MG VIAL IV SCH (06:30)
[2019-10-31] MEDS ORDERED: metFORMIN HCL 500 MG TAB PO SCH (07:30)
[2019-10-31] MEDS: INSULIN LISPRO 100 UNITS/ML PEN SUBCU SCH ×2 (07:41→11:43)
[2019-10-31] MEDS ORDERED: amLODIPine BESYLATE 5 MG TAB PO SCH (09:00)
[2019-10-31] MEDS ORDERED: ASPIRIN (ENTERIC COATED) 81 MG TAB PO SCH (09:00)
[2019-10-31] MEDS ORDERED: HYDROcodone 5MG/APAP 325MG 1 EA TAB PO PRN (09:20)
[2019-10-31] MEDS ORDERED: cefTRIAXone SODIUM 1 GM in SODIUM CHL 0.9% 50ML MIN-BAG+ 50 ML IVPB SCH (09:30)
[2019-10-31] MEDS ORDERED: HYDROcodone 5MG/APAP 325MG 1 EA TAB ONE (09:30)
[2019-10-31] MEDS ORDERED: cefTRIAXone SODIUM 1 GM VIAL ONE (09:31)
[2019-10-31] MEDS ORDERED: SODIUM CHL 0.9% 50ML MIN-BAG+ 50 ML IVPB ONE (09:32)
[2019-10-31 10:58] VITALS: BP 158/77; TEMP 99
[2019-10-31] MEDS ORDERED: ACETAMINOPHEN W/ COD #4 TAB 1EA TAB PO PRN (11:51)
[2019-10-31 12:16] VITALS: O2SAT 99
--- NOTE | 2019-10-31 14:55 | SSS ---
SUPERVISING PHYSICIAN: Davonte Angela M.D. DISCHARGE DIAGNOSIS: 1. Cellulitis of the right jaw most likely due to a buccal abscess, failed outpatient therapy. 2. Strep throat. 3. Diabetes mellitus type 2. 4. Hypertension. 5. Hyperlipidemia. HISTORY OF PRESENT ILLNESS: This is a 73 year-old female who has a past history of hypertension and diabetes. She came to the Emergency Room due to right sided facial pain. She said that it happened about 2 weeks ago. She did try to get in to her dentist at that time but she had a scheduled cholecystectomy done here at [facility]. She was unable to get into her local dentist at that time. She had a cholecystectomy about 2 weeks ago and her pain had improved, but over the last 3 or 4 days the pain had increasingly worsened. She has had some swelling to that right jaw. She was actually given 5 days of antibiotics and the pain did improve. But over the last few days it had worsened to the point that by Friday the pain was unbearable and she had to come to the hospital. In the Emergency Room, her initial vital signs were temperature of 97.6, heart rate 82, blood pressure 211/86, respiratory rate 20, O2 saturation 94% on room air. Lab studies showed a CBC that was unremarkable with an ESR of 29. Electrolytes were within normal limits. There was also a question of some substernal chest pain and her initial troponin was negative. BNP was slightly elevated at 134. Her Strep swab was also positive. CT of the soft tissues of the neck showed no acute process noted. She was placed in observation in the hospital in stable condition. PAST MEDICAL HISTORY: 1. Hypertension. 2. Hyperlipidemia. 3. Diabetes mellitus type 2. PAST SURGICAL HISTORY: 1. Cholecystectomy 2 weeks ago. 2. Appendectomy. OUTPATIENT MEDICATIONS: 1. Metformin. 2. Sertraline. 3. Amlodipine. 4. Vitamin D3. 5. Aspirin. 6. Atorvastatin. ALLERGIES: IODINE, LEVOCETIRIZINE AND NAPROSYN. SOCIAL HISTORY: She lives in [place]. She denies any tobacco, ETOH or illicit drug use. REVIEW OF SYSTEMS: GENERAL: Negative for fever, fatigue or weight changes. HEENT: As per History of Present Illness. RESPIRATORY: Denies wheezing, coughing or shortness of breath. CARDIAC: Positive for mild substernal chest pain that had resolved prior to admission to the Emergency Room. Denies tachycardia or palpitations. GASTROINTESTINAL: Positive for nausea prior to arrival at the Emergency Room. Negative for vomiting, diarrhea or constipation. GENITOURINARY: Negative for hematuria, dysuria or polyuria. SKIN: Negative for lesions or rashes. NEUROLOGIC: Negative for seizures, headaches or dizziness. PHYSICAL EXAMINATION: VITAL SIGNS: Temperature 98.2, heart rate 72, blood pressure 148/77, respiratory rate 16, O2 saturation 97% on 1 liter nasal cannula. GENERAL: This is a 73 year-old female patient lying in her hospital bed. She is in no acute distress. HEENT: Normocephalic, atraumatic. She does have some mild swelling to her right jaw. It is tender to palpation. There is no warmth or erythema noted. NECK: Supple without mass. RESPIRATORY: Essentially clear to auscultation bilaterally. CARDIOVASCULAR: Regular rate and rhythm. GASTROINTESTINAL: Abdomen is soft, nondistended, nontender. Bowel sounds are positive. BACK: Exam is deferred. EXTREMITIES: No cyanosis, clubbing or edema. NEUROLOGIC: Awake, alert and oriented times three. Cranial nerves II-XII are grossly intact as tested. SKIN: Warm and dry. FOLLOWUP LABORATORY: CBC is unremarkable. Electrolytes are within normal limits. Followup serial troponins were negative. Triglycerides are 116, LDL is 127.7, HDL is 48. CRP is 0.7. Urinalysis is unremarkable. All other labs and films have been reviewed via the EMR. HOSPITAL COURSE: The patient has improved slightly overnight. She continues to have pain, but she is on Tylenol #4 at this point. Her followup labs have been unremarkable. She will be discharged home in stable condition. DISCHARGE PLAN: The patient will be discharged home in stable condition. She is to resume her previous diet and activity. She has an appointment with her dentist tomorrow and she is to make sure she keeps that appointment. After she sees her dentist she can followup with Dr. Angela within the next 1 to 2 weeks. In addition to her routine medications she will be sent home on Align as well as 7 additional days of Augmentin. I have also sent her home on some Acetaminophen with Codeine 30 tabs. [facility] was consulted and there are no issues found. She is to return to the hospital or followup with her dentist or Dr. Angela for any problems or complications. DISCHARGE MEDICATIONS: 1. Sertraline. 2. Metformin. 3. Atorvastatin. 4. Amlodipine. 5. Aspirin. 6. Vitamin D3. 7. Align. 8. Augmentin. 9. Acetaminophen with Codeine. [id number]
[2019-10-31] MEDS ORDERED: ENOXAPARIN SODIUM 40 MG/0.4 ML SYG SUBCU SCH (21:00)
== END 2019-10-31 14:20 | disposition home or self-care (01) ==
LOC: ER 14:07 → MS 19:46
PROVIDERS: ADMIT Nurse Practitioner Acute Care; ATTEND Nurse Practitioner Acute Care
DX: L03.211 Cellulitis of face (principal); J02.0 Streptococcal pharyngitis; E11.9 Type 2 diabetes mellitus without complications; I10 Essential (primary) hypertension; E78.5 Hyperlipidemia, unspecified; R07.89 Other chest pain; R51 Headache; M54.2 Cervicalgia; K21.9 Gastro-esophageal reflux disease without esophagitis; Z79.84 Long term (current) use of oral hypoglycemic drugs; Z79.82 Long term (current) use of aspirin; Z79.899 Other long term (current) drug therapy; Z88.8 Allergy status to other drugs, medicaments and biological substances; Z90.49 Acquired absence of other specified parts of digestive tract; Z87.891 Personal history of nicotine dependence
CPT/HCPCS: 96366; 96365; 96375 ×2; 96376 ×2; 96372; J0696 ×2; J3010 ×2; J1170 ×2; J2270; J2405 ×2; J7030; J1650; A4216 ×4; J1815; J7050 ×2; 80048; 82553 ×2; 80053; 82948 ×3; 87880; 80061; 36415 ×4; 81001; 86140; 85025 ×2; 82550 ×2; 85651; 84484 ×4; 83880; 36416 ×2; 83605; 70490; 94760 ×2; 99285; 93005 ×3

== ENCOUNTER 2019-10-31 19:10 | Emergency (ER) | payer MEDICARE ==
--- NOTE | 2019-10-31 19:13 | ED.PDOC ---
History of Present Illness - General Time Seen by Provider: 10/31/19 19:11 - History of Present Illness Initial Comments: 73 yo F with a PMH of HTN, DM, DLD that presents with c/c of one day of shortness of breath. Breathing is worse with exercertion. Patient is post op cholecystectomy 2 weeks ago. Denies fever, chest pain. Does have cough. no n/v/d. no hx of blood clot. She was hospitalized for 24 hours yesterday for facial cellulitis failed outpatient management. She was discharged yesterday on Augmentin. Allergies/Adverse Reactions: Allergies Iodine Allergy (Verified 10/31/19 19:30) Levocetirizine [From Xyzal] Allergy (Verified 10/31/19 19:30) Naproxen [From Aleve] Adverse Reaction (Verified 10/31/19 19:30) red pills Allergy (Uncoded 03/13/18 09:21) Home Medications: Ambulatory Orders Atorvastatin Calcium [Lipitor] 10 mg PO BEDTIME 06/16/15 Metformin HCl [Metformin Hydrochloride] 500 mg PO BIDFD 06/16/15 Sertraline HCl [Zoloft] 150 mg PO BEDTIME 06/16/15 amLODIPine BESYLATE [Norvasc] 5 mg PO DAILY 03/13/18 Aspirin [Aspirin Adult Low Dose] 81 mg PO DAILY 10/11/19 Cholecalciferol [Vitamin D-3] 2,000 unit PO DAILY 10/11/19 Acetaminophen W/ Codeine [Tylenol/Codeine #4 300-60 mg] 1 ea PO Q4HR #30 tab 10/31/19 Amoxicillin & Pot Clavulanate [Augmentin Tab] 875 mg PO BID #14 tab 10/31/19 Bifidobacterium Infantis [Align] 4 mg PO BID #30 capsule 10/31/19 Review of Systems - Review of Systems Constitutional: Denies: diaphoresis, fever, malaise EENTM: Denies: blurred vision, double vision, ear discharge, nose congestion, throat pain, throat swelling Respiratory: States: cough, short of breath, wheezing. Denies: stridor Cardiology: Denies: chest pain, edema, palpitations, syncope Gastrointestinal/Abdominal: Denies: abdominal pain, constipation, diarrhea, nausea, vomiting Genitourinary: Denies: discharge, dysuria, frequency, hematuria Musculoskeletal: Denies: back pain, joint pain, muscle pain, neck pain Skin: Denies: change in color, change in hair/nails, rash Neurological: Denies: headache, numbness, paresthesia, seizure, tingling, tremors, weakness Endocrine: Denies: unexplained weight gain, unexplained weight loss Hematologic/Lymphatic: Denies: anemia, blood clots, easy bleeding, easy bruising Past Medical History (General) - Patient Medical History Hx Seizures: No Hx Stroke: No Hx Dementia: No Hx Asthma: No Hx of COPD: No Hx Cardiac Disorders: No Hx Congestive Heart Failure: No Hx Pacemaker: No Hx Hypertension: Yes Hx Thyroid Disease: No Hx Diabetes: Yes - FSBS 129 Hx Gastroesophageal Reflux: Yes Hx Renal Disease: No Hx Cancer: No Hx of HIV: No Hx Hepatitis C: No Hx MRSA: No - Vaccination History Hx Tetanus, Diphtheria Vaccination: No Hx Influenza Vaccination: No Hx Pneumococcal Vaccination: No - Social History Hx Tobacco Use: Yes Hx Alcohol Use: No Hx Substance Use: No Hx Physical Abuse: No Hx Emotional Abuse: No - Female History Patient : No Family Medical History - Family History Mother Family History: No Known Living Status: Hx Family Asthma: No Hx Family Diabetes: Yes - brother Hx Family;Other: LUPUS Physical Exam - Physical Exam General Appearance: Alert, No apparent distress, Well Developed, Well Groomed, Well Hydrated, Well Nourished Eyes, Ears, Nose, Throat Exam: PERRL/EOMI Neck: non-tender, full range of motion, supple Respiratory: chest non-tender, no accessory muscle use, wheezing, other - t achypnea with movement, no evidence of resp distress Cardiovascular/Chest: normal peripheral pulses, regular rate, rhythm, no edema, no gallop, no JVD, no murmur Peripheral Pulses: radial,right: 2+, radial,left: 2+ Gastrointestinal/Abdominal: normal bowel sounds, non tender, soft, no organomegaly, no pulsatile mass Rectal Exam: deferred Extremity: normal range of motion, non-tender, normal inspection, no pedal edema 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 CXR Nonspecific retrocardiac opacity, query atelectasis, edema or infection. Suspected left pleural effusion. Patient saturating 72% on RA, does not wear oxygen at home. 93% on 3 L NC. Albuterol neb given for wheezing. Due to patients Iodine allergy I recommend she be transferred for V/q scan there is a high possibility she has ablood clot. Patient refused transfer. Family is going to discuss with patient. COVID test negative. After discussion with family, patient agreed to be transferred. We called Erinn meeks, however, v/q scan down. Will transfer to [facility]. Laboratory Results WBC 6.2 K/mm3 (4.8-10.8) 10/31/19 19: RBC 4.11 M/mm3 (4.20-5.40) L 10/31/19: Hgb 12.1 gm/dL (12.0-16.0) 10/31/19: Hct 35.5 % (36.0-47.0) L 10/31/19: MCV 86.4 fl (81.0-99.0) 10/31/19: MCH 29.4 pg (27.0-31.0) 10/31/19: MCHC 34.0 g/dL (33.0-37.0) 10/31/19: RDW 13.6 % (11.5-14.5) 10/31/19: Plt Count 190 K/mm3 (130-400) 10/31/19: MPV 8.5 fl (7.40-10.4) 10/31/19: Absolute Neuts (auto) 4.00 K/uL (1.8-6.8) 10/31/19: Absolute Lymphs (auto) 1.70 K/uL (1.0-3.4) 10/31/19: Absolute Monos (auto) 0.50 K/uL (0.2-0.8) 10/31/19: Absolute Eos (auto) 0.00 K/uL (0.0-0.4) 10/31/19: Absolute Basos (auto) 0.10 K/uL (0.0-0.1) 10/31/19 19:28 Neutrophils % 64.2 % (42.0-78.0) 10/31/19 19: Lymphocytes % 27.3 % (20.0-50.0) 10/31/19 19: Monocytes % 7.5 % (2.0-9.0) 10/31/19 19: Eosinophils % 0.2 % (1.0-5.0) L 10/31/19: Basophils % 0.8 % (0.0-2.0) 10/31/19 19: PT 10.0 SECONDS (9.0-10.9) 10/31/19: INR 1.01 (0.9-1.15) 10/31/19: PTT (SP) 24.9 SECONDS (21.8-31.6) 10/31/19 19: D-Dimer, Quantitative 927.0 ng/ml (131-400) H* 10/31/19 19: Sodium 139 mmol/L (135-145) 10/31/19 19: Potassium 3.8 mmol/L (3.6-5.0) 10/31/19 19: Chloride 103 mmol/L (101-111) 10/31/19 19: Carbon Dioxide 30 mmol/L (21-31) 10/31/19 19: Anion Gap 9.8 (12-18) L 10/31/19 19: BUN 16 mg/dL (7-18) 10/31/19 19: Creatinine 0.69 mg/dL (0.6-1.3) 10/31/19 19: BUN/Creatinine Ratio 23.2 (10-20) H 10/31/19 19: Random Glucose 132 mg/dL (70-105) H 10/31/19 19: Serum Osmolality 280.6 mOsm/L (275-295) 10/31/19 19: Calcium 8.8 mg/dL (8.4-10.2) 10/31/19 19: Total Bilirubin 0.6 mg/dL (0.2-1.0) 10/31/19 19:28 AST 17 IU/L (10-42) 10/31/19 19: ALT 14 IU/L (10-60) 10/31/19 19:28 Alkaline Phosphatase 51 IU/L (42-121) 10/31/19 19:28 Troponin I 0.02 ng/mL (0.01-0.05) 10/31/19 19: B-Natriuretic Peptide 73.4 pg/ml (0-100) 10/31/19 19:28 Serum Total Protein 7.2 gm/dL (6.4-8.2) 10/31/19 19: Albumin 3.6 g/dl (3.2-5.5) 10/31/19 19: Globulin 3.6 gm/dL (2.3-3.5) H 10/31/19 19: Albumin/Globulin Ratio 1.0 (1.1-1.9) L 10/31/19 19:28 The data reviewed when caring for this patient included: nurse notes, prior records, etc. The history and assessments from nurses notes were reviewed and considered, and the patient's home medication list was also reviewed and considered. My assessment and the results of testing completed here in the ED were discussed with the patient/family. All questions were answered, and they express understanding of my assessment and the plan. Patient was transferred to [facility] in stable condition. Judith Pearson DO #[id number] Departure - Departure Clinical Impression: Shortness of breath, Hypoxemia ICD-10 Supporting Text: elevated d-dimer Time of Disposition: 21:35 Disposition: Transfer to Hospital Referrals: Davonte Angela MD [Primary Care Provider] - 1-2 Days Home Medications: Ambulatory Orders Atorvastatin Calcium [Lipitor] 10 mg PO BEDTIME 06/16/15 Metformin HCl [Metformin Hydrochloride] 500 mg PO BIDFD 06/16/15 Sertraline HCl [Zoloft] 150 mg PO BEDTIME 06/16/15 amLODIPine BESYLATE [Norvasc] 5 mg PO DAILY 03/13/18 Aspirin [Aspirin Adult Low Dose] 81 mg PO DAILY 10/11/19 Cholecalciferol [Vitamin D-3] 2,000 unit PO DAILY 10/11/19 Acetaminophen W/ Codeine [Tylenol/Codeine #4 300-60 mg] 1 ea PO Q4HR #30 tab 10/31/19 Amoxicillin & Pot Clavulanate [Augmentin Tab] 875 mg PO BID #14 tab 10/31/19 Bifidobacterium Infantis [Align] 4 mg PO BID #30 capsule 10/31/19 Transfer to Outside Facility - Transfer Information Decision to Transfer Date: 10/31/19 Decision to Transfer Time: 21:00 Reason for Transfer: need v/q scan
--- NOTE | 2019-10-31 19:39 | RAD ---
EXAM DESCRIPTION: Chest,1 View CLINICAL HISTORY: 73 years Female, shortness of breath COMPARISON: 03/13/2018 TECHNIQUE: Single AP chest radiograph. FINDINGS: Low lung volumes. Retrocardiac opacity and suspected left pleural effusion. No pneumothorax. Normal cardiomediastinal contour. IMPRESSION: 1. Nonspecific retrocardiac opacity, query atelectasis, edema or infection. 2. Suspected left pleural effusion. Electronically signed by: Faustino Scott MD 10/31/2019 7:38 PM CDT
[2019-10-31] MEDS ORDERED: ALBUTEROL INHALER 64 PUFF/8GM INH ONE (20:03)
[2019-10-31] MEDS ORDERED: ALBUTEROL SULFATE 2.5 MG/3 ML VIAL NEB ONE ×2 (21:27→21:28)
[2019-10-31] MEDS ORDERED: MORPHINE SULFATE INJ 10 MG/ML VIAL IV ONE (22:41)
[2019-10-31 23:03] VITALS: BP 170/95; TEMP 99; O2SAT 100
== END 2019-10-31 23:11 | disposition short-term general hospital (02) ==
LOC: ER 19:10
DX: R06.02 Shortness of breath (principal); R09.02 Hypoxemia; R79.89 Other specified abnormal findings of blood chemistry; R05 Cough; I10 Essential (primary) hypertension; E11.9 Type 2 diabetes mellitus without complications; K21.9 Gastro-esophageal reflux disease without esophagitis; Z20.828 Contact with and (suspected) exposure to other viral communicable diseases; Z91.041 Radiographic dye allergy status; Z79.899 Other long term (current) drug therapy; Z79.84 Long term (current) use of oral hypoglycemic drugs; Z79.82 Long term (current) use of aspirin; Z88.6 Allergy status to analgesic agent; Z88.8 Allergy status to other drugs, medicaments and biological substances; Z90.49 Acquired absence of other specified parts of digestive tract
CPT/HCPCS: 36600; 71045; 80053; 81001; 82803; 83880; 84484; 85025; 85379; 85610; 85730; 87635; 93005; 94640; J2270; J7611